=== PATIENT | male | born 1985 | race Caucasian/White ===

== ENCOUNTER 2022-03-29 05:34 | Emergency (ER) | payer MEDICAID ==
[~2022-03-29] VITALS: Ht 170.2 cm; Wt 86.2 kg
--- NOTE | 2022-03-29 05:56 | NUR ---
Dr. Elam at bedside.
[2022-03-29] MEDS ORDERED: ONDANSETRON 4 MG/2 ML VIAL IV ONE (06:00)
[2022-03-29] MEDS ORDERED: IV D5/ 0.9% NACL 1,000 ML IV ONE (06:00)
[2022-03-29] MEDS ORDERED: ONDANSETRON 4 MG/2 ML VIAL ONE (06:08)
--- NOTE | 2022-03-29 06:28 | NUR ---
gave all due meds as ordered, inserted IV on Left AC 22G SL, labs currently being withdrawn at this time.
--- NOTE | 2022-03-29 06:30 | NUR ---
cxr being done at bedside at this time.
[2022-03-29 06:39] LABS: HEMATOCRIT 41.5 % (36.7-47.1); MEAN CORPUSCULAR HEMOGLOBIN 29.3 uug (23.8-33.4); MEAN CORPUSCULAR VOLUME 85.1 fL (73.0-96.2); PLATELET COUNT (AUTO) 150 K/uL (152-348)
[2022-03-29 06:53] LABS: ALANINE AMINOTRANSFERASE 38 U/L (16-63); ALKALINE PHOSPHATASE 127 U/L (50-136); ASPARTATE AMINOTRANSFERASE 18 U/L (15-37); BILIRUBIN,DIRECT < 0.1 mg/dL (0.0-0.2); BILIRUBIN,TOTAL 0.3 mg/dL (0.2-1.0); CARBON DIOXIDE 26 mmol/L (21-32); CHLORIDE 104 mmol/L (98-107); CREATININE 0.8 mg/dL (0.6-1.3); GLUCOSE 265 mg/dL (74-106); POTASSIUM 3.9 mmol/L (3.5-5.1); TOTAL PROTEIN, SERUM 7.2 g/dL (6.4-8.2); UREA NITROGEN, BLOOD 6 mg/dL (7-18)
[2022-03-29 06:54] LABS: ETHANOL 215 MG/DL (0-0)
[2022-03-29 07:00] LABS: THYROID STIMULATING HORMONE 0.324 mIU/mL (0.358-3.740)
[2022-03-29 07:06] LABS: ACETAMINOPHEN < 10.0 ug/mL (10-30)
[2022-03-29] MEDS ORDERED: IV NORMAL SALINE 500 ML BAG IV ONE (07:30)
[2022-03-29] MEDS ORDERED: LORAZEPAM 1 MG TABLET ONE (08:06)
--- NOTE | 2022-03-29 08:10 | NUR ---
DR HELLER EVALUATED THE PT AND DISCUSSED PT's CASE WITH DR GREENE FROM [facility].
[2022-03-29] MEDS ORDERED: LORAZEPAM 0.5 MG TABLET PO ONE (08:15)
[2022-03-29] MEDS ORDERED: CHLO25CA22 PO ×10 (08:40→09:05)
--- NOTE | 2022-03-29 10:04 | NUR ---
PT DECIDED TO LEAVE HOSPITAL AMA. DR HELLER EXPLAINED ALL RISKS OF LEAVING HOSPITAL ER AMA TO THE PT. PT WERBALIZED FULL UNDERSTANDING. PT HAS STABLE GAIT, NO NAUSEA, NO VOMITING, PT DENIES PAIN, NO DIZZINESS.
--- NOTE | 2022-03-29 10:15 | NUR ---
PT WAS D/C'd TO HOME. D/C INSTRUCTIONS GIVEN TO THE PT BY DR HELLER.
[2022-03-29 10:17] VITALS: BP 133/79
== END 2022-03-29 10:22 | disposition left against medical advice (07) ==
LOC: ER 05:58
DX: F10.129 Alcohol abuse with intoxication, unspecified (principal); R00.0 Tachycardia, unspecified; Y90.7 Blood alcohol level of 200-239 mg/100 ml
CPT/HCPCS: 80076; 80048; 84443; 85025; 36415; 93005; 71045; 99285; 96361; 96374; 80299; 80320; J2405; J7042; J7040; A4663; G0480